=== PATIENT | female | born 1975 | race Caucasian/White ===

== ENCOUNTER 2020-02-20 09:29 | Outpatient (CLI) | payer BC ==
--- NOTE | 2020-03-06 16:25 | Mammography Report ---
BILATERAL DIGITAL SCREENING MAMMOGRAM 3D/2D: 02/20/2020 CLINICAL: Routine screening. No prior exams were available for comparison. The tissue of both breasts is heterogeneously dense. T his may lower the sensitivity of mammography. There are oval enlarged lymph nodes with uniform cortical thickening in the left axillary tail. No other significant masses, calcifications, or other findings are seen in either breast. IMPRESSION: INCOMPLETE: NEEDS ADDITIONAL IMAGING EVALUATION The enlarged oval lymph nodes with uniform cortical thickening are indeterminate. An axillary ultras ound is recommended. This exam was interpreted at Station ID: [id number]. NOTE: For mammograms, a report in lay terms will be sent to the patient. Approximately 15% of breast malignancies will not be visualized mammographically. In the management of a palpable breast mass, a negative mammogram must not discourage biopsy of a clinically suspicious lesion. Electronically Signed By: Nura Puente M.D. aty/:03/05/2020 11:02:42 ACR BI-RADS Category 0: Incomplete 3340F PARENCHYMAL PATTERN: (D) - The breast(s) demonstrate(s) heterogeneously dense fibroglandular marin murphy. BI-RADS CATEGORY: (0) - 0 Ultrasound [id number] Immediate follow-up LATERALITY: (L)
== END 2020-02-20 09:30 | disposition home or self-care (01) ==
LOC: DI 09:29
PROVIDERS: ATTEND Advanced Practice Midwife
DX: Z12.31 Encounter for screening mammogram for malignant neoplasm of breast (principal); R59.0 Localized enlarged lymph nodes
CPT/HCPCS: 77063; 77067

== ENCOUNTER 2020-04-03 12:28 | Outpatient (CLI) | payer BC ==
--- NOTE | 2020-04-04 13:38 | Ultrasound Report ---
LIMITED ULTRASOUND OF LEFT BREAST AND AXILLA: 04/03/2020 CLINICAL: Patient returns for enlarged Left Axillary Lymph nodes. Comparison is made to exams dated: 02/20/2020 mammogram - [facility] and 07/10/2017 mammogram - [facility]. Ultrasound of the left breast axilla was performed. Multiple axillary lymph nodes are seen with normal cortical thickness and preserved fatty purnima. This corresponds with the mammographic findings. IMPRESSION: BENIGN The axillary lymph nodes appear benign. There is no sonographic evidence of malignancy. A 1 year screening mammogram is recommended. This exam was interpreted at Station ID: [id number]. Electronically Signed By: Ameya lee/marissa:04/03/2020 16:53:25 Ultrasound BI-RADS: 2 Benign BI-RADS CATEGORY: (2) - 2 RECOMMENDATION: (ANNUAL) - Recommend routine annual screening mammography. [id number] 1 year screening LATERALITY: (B)
== END 2020-04-03 12:29 | disposition home or self-care (01) ==
LOC: DI 12:28
PROVIDERS: ATTEND Advanced Practice Midwife
DX: R92.2 Inconclusive mammogram (principal)
CPT/HCPCS: 76642

== ENCOUNTER 2020-05-10 07:01 | Outpatient (CLI) | payer BC ==
--- NOTE | 2020-05-10 11:59 | Ultrasound Report ---
PROCEDURE: Pelvic w/Transvaginal INDICATIONS: HX OF OVARIAN CYST, UTERINE FIBROIDS TECHNIQUE: Real-time scanning was performed of the pelvic organs, with image documentation. Additional endovagi nal scanning was necessary due to incomplete visualization of the adnexal and endometrial structures by transabdominal scanning. COMPARISON: None. FINDINGS: Transabdominal scanning: Limited scanning through the kidneys shows no hydronephrosis. No pathologi c free abdominal or pelvic fluid. Endovaginal scanning: Uterus: Uterus is enlarged in size at 11 x 6.4 x 9.9 cm. The endometrium measures 13.2 mm in combin ed thickness. 4.8 x 3.9 x 3.3 cm subserosal fibroid is noted in anterior myometrium near midline. 3. 3 x 3 x 2.8 cm subserosal fibroid is seen in left anterior myometrium. 5 x 5 x 4.1 cm subserosal fibr oid is noted in right anterior myometrium. Trace amount of fluid is noted within endocervical canal. No discrete endometrial mass is seen. Multiple nabothian cysts are also noted along endocervical delaney l. Ovaries: Right ovary measures 6.6 x 4.8 x 5.1 cm in size. 4. 4 x 4 by 3.7 cm cyst with internal low- level echo is seen in right ovary. Additional follicles are noted in right ovary measures up to 2 x 1 .6 x 1 cm in size. Left ovary measures 3.5 x 6.3 x 4.1 cm in size with a left ovarian cyst containing internal low-level echo measures 4.3 x 3.9 x 6.3 cm in size. 2 left ovarian follicles are noted petr ures up to 2 x 1.6 x 1.5 cm in size. No gross solid appearing ovarian lesion is seen. Normal blood fl ow is seen in bilateral ovaries on color Doppler images. IMPRESSION: 1. Multiple uterine fibroids as described above. Thickened endometrium with small amount of endometri al fluid. No discrete endometrial mass is seen. 2. Multiple nabothian cysts are noted within endocervical canal. 3. Bilateral ovarian cysts with low-level echoes suggestive of hemorrhagic cysts or slightly complex cyst. Additional bilateral ovarian follicles. No solid appearing ovarian lesion or evidence of ovaria n torsion. Reviewed by: Jovan Penn MD on 05/10/2020 11:58 AM PST Approved by: Jovan Penn MD on 05/10/2020 11:58 AM [facility] Station ID: [id number]
== END 2020-05-10 07:02 | disposition home or self-care (01) ==
LOC: DI 07:01
PROVIDERS: ATTEND Advanced Practice Midwife
DX: D25.2 Subserosal leiomyoma of uterus (principal); N83.202 Unspecified ovarian cyst, left side; N83.201 Unspecified ovarian cyst, right side; N88.8 Other specified noninflammatory disorders of cervix uteri; Z87.42 Personal history of other diseases of the female genital tract

== ENCOUNTER 2020-05-10 07:54 | Outpatient (CLI) | payer BC ==
[2020-05-11 05:47] LABS: ESTRADIOL 131 pg/mL; PROGESTERONE <0.5 ng/mL
== END 2020-05-10 07:55 | disposition home or self-care (01) ==
LOC: LAB 07:54
PROVIDERS: ATTEND Obstetrics & Gynecology Reproductive Endocrinology
DX: E28.9 Ovarian dysfunction, unspecified (principal)
CPT/HCPCS: 36415; 82670; 83002; 84144

== ENCOUNTER 2020-05-29 08:37 | Outpatient (CLI) | payer BC ==
[2020-05-30 07:07] LABS: PROGESTERONE 53.2 ng/mL
== END 2020-05-29 08:38 | disposition home or self-care (01) ==
LOC: LAB 08:37
DX: Z32.00 Encounter for pregnancy test, result unknown (principal)
CPT/HCPCS: 36415; 82670; 84144

== ENCOUNTER 2020-06-02 08:00 | Outpatient (CLI) | payer BC | END 2020-06-02 23:59 | disposition home or self-care (01) | LOC: LAB 08:00 | PROVIDERS: ATTEND Obstetrics & Gynecology Reproductive Endocrinology | DX: Z32.00 Encounter for pregnancy test, result unknown (principal) | CPT/HCPCS: 36415; 84144; 84702 ==

== ENCOUNTER 2020-06-05 07:50 | Outpatient (CLI) | payer BC ==
[2020-06-06 11:07] LABS: PROGESTERONE 38.8 ng/mL
== END 2020-06-05 07:51 | disposition home or self-care (01) ==
LOC: LAB 07:50
PROVIDERS: ATTEND Obstetrics & Gynecology Reproductive Endocrinology
DX: Z32.01 Encounter for pregnancy test, result positive (principal)
CPT/HCPCS: 36415; 82670; 84144; 84443; 84702

== ENCOUNTER 2020-09-19 15:14 | Outpatient (CLI) | payer BC ==
[2020-09-19 15:31] LABS: HCT - HEMATOCRIT 34.3 % (37.0-47.0); HGB - HEMOGLOBIN 10.6 g/dL (12.0-16.0); MEAN CORPUSCULAR HEMOGLOBIN 25.4 pg (27.0-31.0); MEAN CORPUSCULAR HGB CONC 30.9 g/dL (32.0-36.0); MEAN CORPUSCULAR VOLUME 82.3 fL (81.0-99.0); MEAN PLATELET VOLUME 10.3 fL (7.9-10.8); RED BLOOD COUNT 4.17 10^6/uL (4.20-5.40); WHITE BLOOD COUNT 7.1 x10^3/uL (4.8-10.8)
[2020-09-19 16:07] LABS: % IRON SATURATION 5 % (20-50); IRON 23 ug/dL (28-170); TOTAL IRON BINDING CAPACITY 473 ug/dL (250-450); TRANSFERRIN 338 mg/dL (192-382)
== END 2020-09-19 15:15 | disposition home or self-care (01) ==
LOC: LAB 15:14
PROVIDERS: ATTEND Obstetrics & Gynecology
DX: D25.9 Leiomyoma of uterus, unspecified (principal); D21.9 Benign neoplasm of connective and other soft tissue, unspecified; N92.0 Excessive and frequent menstruation with regular cycle
CPT/HCPCS: 36415; 83540; 84466; 85027

== ENCOUNTER 2020-10-20 09:50 | Outpatient (CLI) | payer BC | END 2020-10-20 23:59 | disposition home or self-care (01) | LOC: COV 09:50 | PROVIDERS: ATTEND Obstetrics & Gynecology | DX: Z01.812 Encounter for preprocedural laboratory examination (principal); Z20.822 Contact with and (suspected) exposure to COVID-19 ==

== ENCOUNTER 2021-06-25 16:40 | Outpatient (CLI) | payer BC ==
--- NOTE | 2021-06-26 14:39 | Ultrasound Report ---
PROCEDURE: Pelvic w/Transvaginal INDICATIONS: FEMALE INFERTILITY TECHNIQUE: Real-time scanning was performed of the pelvic organs, with image documentation. Additional endovagi nal scanning was necessary due to incomplete visualization of the adnexal and endometrial structures by transabdominal scanning. COMPARISON: 05/10/2020 FINDINGS: The uterine body is enlarged measuring 5.7 x 5.7 x 10.2 cm, decreased in size from the prior study (m easuring 6.4 x 9.9 x 11.0 cm at that time. Endometrium measures 11 mm in combined double layer thickness (previously 13 mm). Multiple fibroids are redemonstrated. In the midline anterior uterus there is a subserosal fibroid measuring 2.6 x 3.8 x 4.0 cm (previously 3.3 x 3.9 x 4.8 cm). In the right anterior uterus there is a subserosal fibroid which may be pedunculated, currently measu ring 2.2 x 1.8 x 2.3 cm (previously 5.0 x 5.0 x 5.0 cm). In the left anterior uterus, subserosal fibroid measuring 3.6 x 3.9 x 4.2 cm has increased in size fr om 3.0 x 2.8 x 3.3 cm. Both ovaries are identified. Right ovary unremarkable measuring 3.1 x 3.1 x 3.2 cm. Probable hemorrha gic cyst in the left ovary measuring up to 2 cm. There is a left paraovarian cyst measuring 1.9 x 1.7 x 3.0 cm. A dominant follicle in the left ovary measures 3.7 cm. IMPRESSION: Multiple uterine fibroids, 2 of which have decreased in size from the prior study while the third has increased in size. Bilateral ovarian cysts without evidence of solid lesion. Reviewed by: Dave Monroy MD on 06/26/2021 2:38 PM PST Approved by: Dave Monroy MD on 06/26/2021 2:38 PM PST Station ID: [id number]
== END 2021-06-25 16:41 | disposition home or self-care (01) ==
LOC: DI 16:40
PROVIDERS: ATTEND Obstetrics & Gynecology
DX: N97.9 Female infertility, unspecified (principal); D25.2 Subserosal leiomyoma of uterus; N83.202 Unspecified ovarian cyst, left side; N83.201 Unspecified ovarian cyst, right side

== ENCOUNTER 2021-06-26 07:58 | Outpatient (CLI) | payer BC ==
[2021-06-26 09:48] LABS: THYROID STIMULATING HORMONE 4.41 uIU/mL (0.34-5.60)
[2021-06-26 10:15] LABS: FOLLICLE STIMULATING HORMONE 11.91 mIU/mL
[2021-06-26 10:16] LABS: LUTEINIZING HORMONE 6.78 mIU/mL
[2021-06-27 06:41] LABS: PROGESTERONE 0.5 ng/mL
== END 2021-06-26 07:59 | disposition home or self-care (01) ==
LOC: LAB 07:58
PROVIDERS: ATTEND Obstetrics & Gynecology Reproductive Endocrinology
DX: Z31.83 Encounter for assisted reproductive fertility procedure cycle (principal)
CPT/HCPCS: 36415; 82670; 83001; 83002; 84144; 84443; 84702

== ENCOUNTER 2021-06-28 19:25 | Outpatient (CLI) | payer BC ==
--- NOTE | 2021-06-28 21:04 | Ultrasound Report ---
PROCEDURE: Transvaginal INDICATIONS: Female infertility TECHNIQUE: Real-time scanning was performed with imaging documentation. Endovaginal scanning: Yes. COMPARISON: Ultrasound pelvis, 06/25/2021 and 05/10/2020. FINDINGS: Uterus is anteverted measuring 10.1 x 5.7 x 6.4 cm. Endometrium measures 10 mm in combined thickness. There is a small amount of fluid within the individual cavity. Multiple uterine fibroids are present. The largest one measures 4.0 x 2.6 x 3.6 cm in the right anterior uterine wall. Right ovary measures 3.5 x 2.8 x 3.0 cm with an estimated volume of 15.3 cc. A 1.8 x 1.6 x 1.4 cm cys t is seen in the right ovary, likely dominant ovarian follicle. Less than 10 ovarian follicles. Left ovary measures 4.9 x 5.4 x 4.9 cm with an estimated volume of 67.6 cc. There is a 4.0 x 3.4 x 3. 9 cm cyst in the left ovary, likely hemorrhagic. The previously described left paraovarian cyst is no t visualized on transvaginal scan. Less than 10 ovarian follicles. IMPRESSION: 1. The uterus is enlarged and contains multiple uterine fibroids. There is a small amount of fluid in the endometrial cavity likely related to menses. Recommend clinical correlation. 2. A 4.0 x 3.4 x 3.9 cm hemorrhagic left ovarian cyst. Follow-up imaging suggested. Reviewed by: Eligio Edgar MD on 06/28/2021 9:02 PM PST Approved by: Eligio Edgar MD on 06/28/2021 9:02 PM PST Station ID: [id number]
== END 2021-06-28 19:26 | disposition home or self-care (01) ==
LOC: DI 19:25
PROVIDERS: ATTEND Obstetrics & Gynecology
DX: D25.9 Leiomyoma of uterus, unspecified (principal); N83.202 Unspecified ovarian cyst, left side

== ENCOUNTER 2021-11-02 12:20 | Outpatient (CLI) | payer BC ==
[2021-11-02 17:13] LABS: BASOPHILS # (AUTO) 0.1 10^3/uL (0.0-0.1); BASOPHILS % (AUTO) 0.4 %; EOSINOPHILS % (AUTO) 0.2 %; HCT - HEMATOCRIT 32.6 % (37.0-47.0); HGB - HEMOGLOBIN 10.3 g/dL (12.0-16.0); LYMPHOCYTES # (AUTO) 1.8 10^3/uL (1.5-3.5); LYMPHOCYTES % (AUTO) 11.2 %; MEAN CORPUSCULAR HEMOGLOBIN 27.5 pg (27.0-31.0); MEAN CORPUSCULAR HGB CONC 31.6 g/dL (32.0-36.0); MEAN CORPUSCULAR VOLUME 86.9 fL (81.0-99.0); MEAN PLATELET VOLUME 10.5 fL (7.9-10.8); MONOCYTES % (AUTO) 6.5 %; NEUTROPHILS # (AUTO) 12.7 10^3/uL (1.5-6.6); NEUTROPHILS % (AUTO) 81.1 %; PLT - PLATELET COUNT 538 10^3/uL (130-450); RED BLOOD COUNT 3.75 10^6/uL (4.20-5.40); RED CELL DISTRIBUTION WIDTH 15.9 % (12.0-15.0); WHITE BLOOD COUNT 15.6 x10^3/uL (4.8-10.8)
[2021-11-02 17:30] LABS: ALBUMIN 3.9 g/dL (3.2-5.5); ALBUMIN/GLOBULIN RATIO 0.8 (1.0-2.2); BILIRUBIN,TOTAL 0.5 mg/dL (0.2-1.0); CALCIUM 9.6 mg/dL (8.5-10.3); CREATININE 0.7 mg/dL (0.4-1.0); POTASSIUM 3.9 mmol/L (3.5-5.0); TOTAL PROTEIN 8.8 g/dL (6.7-8.2)
[2021-11-02 17:36] LABS: THYROID STIMULATING HORMONE 2.1 uIU/mL (0.34-5.60)
== END 2021-11-02 12:21 | disposition home or self-care (01) ==
LOC: LAB.N 12:20
PROVIDERS: ATTEND Registered Nurse
DX: R06.09 Other forms of dyspnea (principal); R50.9 Fever, unspecified
CPT/HCPCS: 36415; 80053; 84443; 85025; 86140; 87086

== ENCOUNTER 2021-11-04 11:31 | Observation (INO) | payer BC ==
[2021-11-04 13:02] LABS: BASOPHILS # (AUTO) 0.1 10^3/uL (0.0-0.1); BASOPHILS % (AUTO) 0.5 %; EOSINOPHILS % (AUTO) 0.2 %; HCT - HEMATOCRIT 30.3 % (37.0-47.0); HGB - HEMOGLOBIN 9.9 g/dL (12.0-16.0); LYMPHOCYTES # (AUTO) 1.6 10^3/uL (1.5-3.5); LYMPHOCYTES % (AUTO) 7.8 %; MEAN CORPUSCULAR HEMOGLOBIN 27.7 pg (27.0-31.0); MEAN CORPUSCULAR HGB CONC 32.7 g/dL (32.0-36.0); MEAN CORPUSCULAR VOLUME 84.9 fL (81.0-99.0); MEAN PLATELET VOLUME 9.6 fL (7.9-10.8); MONOCYTES # (AUTO) 1.1 10^3/uL (0.0-1.0); MONOCYTES % (AUTO) 5.7 %; NEUTROPHILS % (AUTO) 85.2 %; PLT - PLATELET COUNT 532 10^3/uL (130-450); RED BLOOD COUNT 3.57 10^6/uL (4.20-5.40); RED CELL DISTRIBUTION WIDTH 16.1 % (12.0-15.0); WHITE BLOOD COUNT 19.9 x10^3/uL (4.8-10.8)
[2021-11-04 13:08] LABS: INR 1.5 (0.8-1.2); PT - PROTHROMBIN TIME 16.6 secs (9.9-12.6)
[2021-11-04 13:15] LABS: ALBUMIN 3.8 g/dL (3.2-5.5); ALBUMIN/GLOBULIN RATIO 0.8 (1.0-2.2); BILIRUBIN,TOTAL 0.4 mg/dL (0.2-1.0); CALCIUM 9.4 mg/dL (8.5-10.3); CREATININE 0.5 mg/dL (0.4-1.0); POTASSIUM 3.9 mmol/L (3.5-5.0); TOTAL PROTEIN 8.4 g/dL (6.7-8.2)
[2021-11-04 14:22] LABS: BILIRUBIN,URINE NEGATIVE (NEGATIVE); GLUCOSE, URINE (UA) NEGATIVE (NEGATIVE); KETONES,URINE (UA) 40 mg/dL (NEGATIVE); LEUKOCYTE ESTERASE, URINE TRACE (NEGATIVE); NITRITE,URINE NEGATIVE (NEGATIVE); OCCULT BLOOD,URINE LARGE (NEGATIVE); PH,URINE 5.5 PH (5.0-7.5); PROTEIN,URINE TRACE mg/dL (NEGATIVE); UROBILINOGEN,URINE 0.2 (NORMAL) E.U./dL (NORMAL)
[2021-11-04 14:40] LABS: CLARITY,URINE CLEAR (CLEAR)
[2021-11-04 14:41] LABS: BACTERIA,URINE None Seen /HPF (None Seen); SQUAMOUS EPITHELIAL CELL,UR FEW Squamous (<= Few)
[2021-11-04] MEDS ORDERED: SODIUM CHLORIDE 0.9% 1,000 ML IV STA (15:24)
[2021-11-04] MEDS ORDERED: cefTRIAXone 1 GM VIAL IVP STA (15:25)
--- NOTE | 2021-11-04 15:37 | ED Physician Documentation ---
History of Present Illness - Stated complaint Stated Complaint: ABNORMAL BLOODWORK - Chief complaint Chief Complaint: General - Additonal information Additional information: 46-year-old female comes to the emergency department for evaluation of abnormal lab work. About 1 week ago she began to have generalized myalgias chills and significant fatigue. She also had low-grade temperature elevations. About 72 hours ago she developed a fever up to 102. She went to a local walk-in clinic. Screening x-ray at that time was negative. She was told negative for UTI. However screening blood work showed a white count of 17,000 as well as a CRP of 17,000 thus she was told to come into the ER. On repeat exam today she has developed a fever up to 103.4. Repeat CBC shows worsening leukocytosis now at 20,000. She denies any abdominal pain nausea or vomiting. No dysuria. Past medical history is most significant for endometritis Review of Systems Constitutional: reports: Fever, Chills, Myalgias, Fatigue Eyes: reports: Reviewed and negative Ears: reports: Reviewed and negative Throat: reports: Reviewed and negative Cardiac: reports: Reviewed and negative Respiratory: reports: Reviewed and negative GI: reports: Reviewed and negative : reports: Reviewed and negative PD PAST MEDICAL HISTORY - Present Medications Home Medications: Ambulatory Orders Medication Instructions Recorded Confirmed Levothyroxine [Synthroid] 75 mcg PO QDAC 11/04/21 - Allergies Allergies/Adverse Reactions: Allergies Allergy/AdvReac Type Severity Reaction Status Date / Time piperacillin [From Zosyn] AdvReac Itching Verified 11/04/21 11:42 tazobactam [From Zosyn] AdvReac Itching Verified 11/04/21 11:42 PD ED PE NORMAL - General General: Alert and oriented X 3, No acute distress, Well developed/nourished - HEENT HEENT: Atraumatic, Moist mucous membranes, Pharynx benign - Neck Neck: Supple, no meningeal sign, No adenopathy, No JVD - Cardiac Cardiac: RRR, No murmur - Respiratory Respiratory: No respiratory distress, Clear bilaterally - Abdomen Abdomen: Normal bowel sounds, Soft. No: Non tender Results - Vitals Vitals: Vital Signs - 24 hr 11/04/21 11/04/21 11:36 14:44 Temperature 36.6 C Heart Rate 95 97 Respiratory 16 16 Rate Blood Pressure 127/76 121/78 O2 Saturation 100 100 Oxygen O2 Source Room air - Labs Labs: Laboratory Tests 11/04/21 11/04/21 11/04/21 12:51 12:51 12:51 WBC 19.9 H RBC 3.57 L Hgb 9.9 L Hct 30.3 L MCV 84.9 MCH 27.7 MCHC 32.7 RDW 16.1 H Plt Count 532 H MPV 9.6 Neut # (Auto) 17.0 H Lymph # (Auto) 1.6 Bell # (Auto) 1.1 H Eos # (Auto) 0.0 Baso # (Auto) 0.1 Absolute Nucleated RBC 0.00 Nucleated RBC % 0.0 PT 16.6 H INR 1.5 H Sodium 138 Potassium 3.9 Chloride 99 L Carbon Dioxide 27 Anion Gap 12.0 BUN 12 Creatinine 0.5 Estimated GFR (MDRD) 133 Glucose 101 H Lactic Acid Calcium 9.4 Iron TIBC % Saturation Transferrin Total Bilirubin 0.4 AST 41 ALT 77 H Alkaline Phosphatase 119 Total Creatine Kinase 69 Total Protein 8.4 H Albumin 3.8 Globulin 4.6 H Albumin/Globulin Ratio 0.8 L Lipase 28 Procalcitonin TSH Urine Color Urine Clarity Urine pH Ur Specific Roosevelt Urine Protein Urine Glucose (UA) Urine Ketones Urine Occult Blood Urine Nitrite Urine Bilirubin Urine Urobilinogen Ur Leukocyte Esterase Urine RBC Urine WBC Ur Squamous Epith Cells Urine Bacteria Ur Microscopic Review Urine Culture Comments Nasal Adenovirus (PCR) Nasal B. parapertussis DNA (PCR) Nasal Coronavir 229E PCR Nasal Coronavir HKU1 PCR Nasal Coronavir NL63 PCR Nasal Coronavir OC43 PCR Nasal Enterovir/Rhinovir PCR Nasal Influenza B PCR Nasal Influenza A PCR Nasal Parainfluen 1 PCR Nasal Parainfluen 2 PCR Nasal Parainfluen 3 PCR Nasal Parainfluen 4 PCR Nasal RSV (PCR) Nasal B.pertussis DNA PCR Nasal C.pneumoniae (PCR) De Human Metapneumo PCR Nasal M.pneumoniae (PCR) Nasal SARS-CoV-2 (PCR) 11/04/21 11/04/21 11/04/21 12:51 12:51 13:00 WBC RBC Hgb Hct MCV MCH MCHC RDW Plt Count MPV Neut # (Auto) Lymph # (Auto) Bell # (Auto) Eos # (Auto) Baso # (Auto) Absolute Nucleated RBC Nucleated RBC % PT INR Sodium Potassium Chloride Carbon Dioxide Anion Gap BUN Creatinine Estimated GFR (MDRD) Glucose Lactic Acid 0.5 Calcium Iron 12 L TIBC 330 % Saturation 4 L Transferrin 236 Total Bilirubin AST ALT Alkaline Phosphatase Total Creatine Kinase Total Protein Albumin Globulin Albumin/Globulin Ratio Lipase Procalcitonin 0.10 TSH Urine Color Urine Clarity Urine pH Ur Specific [place] Urine Protein Urine Glucose (UA) Urine Ketones Urine Occult Blood Urine Nitrite Urine Bilirubin Urine Urobilinogen Ur Leukocyte Esterase Urine RBC Urine WBC Ur Squamous Epith Cells Urine Bacteria Ur Microscopic Review Urine Culture Comments Nasal Adenovirus (PCR) Nasal B. parapertussis DNA (PCR) Nasal Coronavir 229E PCR Nasal Coronavir HKU1 PCR Nasal Coronavir NL63 PCR Nasal Coronavir OC43 PCR Nasal Enterovir/Rhinovir PCR Nasal Influenza B PCR Nasal Influenza A PCR Nasal Parainfluen 1 PCR Nasal Parainfluen 2 PCR Nasal Parainfluen 3 PCR Nasal Parainfluen 4 PCR Nasal RSV (PCR) Nasal B.pertussis DNA PCR Nasal C.pneumoniae (PCR) De Human Metapneumo PCR Nasal M.pneumoniae (PCR) Nasal SARS-CoV-2 (PCR) 11/04/21 11/04/21 11/04/21 13:00 14:12 14:52 WBC RBC Hgb Hct MCV MCH MCHC RDW Plt Count MPV Neut # (Auto) Lymph # (Auto) Bell # (Auto) Eos # (Auto) Baso # (Auto) Absolute Nucleated RBC Nucleated RBC % PT INR Sodium Potassium Chloride Carbon Dioxide Anion Gap BUN Creatinine Estimated GFR (MDRD) Glucose Lactic Acid Calcium Iron TIBC % Saturation Transferrin Total Bilirubin AST ALT Alkaline Phosphatase Total Creatine Kinase Total Protein Albumin Globulin Albumin/Globulin Ratio Lipase Procalcitonin TSH 2.85 Urine Color YELLOW Urine Clarity CLEAR Urine pH 5.5 Ur Specific Roosevelt 1.025 Urine Protein TRACE Urine Glucose (UA) NEGATIVE Urine Ketones 40 H Urine Occult Blood LARGE H Urine Nitrite NEGATIVE Urine Bilirubin NEGATIVE Urine Urobilinogen 0.2 (NORMAL) Ur Leukocyte Esterase TRACE H Urine RBC 11-25 H Urine WBC 6-10 H Ur Squamous Epith Cells FEW Squamous Urine Bacteria None Seen Ur Microscopic Review INDICATED Urine Culture Comments INDICATED Nasal Adenovirus (PCR) NOT DETECTED Nasal B. parapertussis DNA (PCR) NOT DETECTED Nasal Coronavir 229E PCR NOT DETECTED Nasal Coronavir HKU1 PCR NOT DETECTED Nasal Coronavir NL63 PCR NOT DETECTED Nasal Coronavir OC43 PCR NOT DETECTED Nasal Enterovir/Rhinovir PCR NOT DETECTED Nasal Influenza B PCR NOT DETECTED Nasal Influenza A PCR NOT DETECTED Nasal Parainfluen 1 PCR NOT DETECTED Nasal Parainfluen 2 PCR NOT DETECTED Nasal Parainfluen 3 PCR NOT DETECTED Nasal Parainfluen 4 PCR NOT DETECTED Nasal RSV (PCR) NOT DETECTED Nasal B.pertussis DNA PCR NOT DETECTED Nasal C.pneumoniae (PCR) NOT DETECTED De Human Metapneumo PCR NOT DETECTED Nasal M.pneumoniae (PCR) NOT DETECTED Nasal SARS-CoV-2 (PCR) DETECTED A PD MEDICAL DECISION MAKING - ED course Complexity details: considered differential, d/w patient ED course: 46-year-old female presents to the emergency department for evaluation of worsening fever and leukocytosis. Generalized fatigue and myalgia over the last week. Repeat CBC today shows worsening leukocytosis at 20,000. Chest x-ray does not reveal an obvious pneumonia but her urine suggests early infection.However we would not expect a simple UTI to cause such significant fever and leukocytosis. Blood cultures are pending. Patient does meet the criteria for sepsis without hypotension or organ dysfunction. I have however spoken about this case with Dr. Fernandes and he feels that admission is warranted for further evaluation and monitoring. Patient remains hemodynamically stable and is agreeable to inpatient admission status. - Sepsis Event Sepsis Onset Date: 11/04/21 Sepsis Onset Time: 15:00 Current Stage of Sepsis: Sepsis Initial Hypotension: Not hypotensive Possible source of Sepsis: Genitourinary Mental/Cognitive Status: Alert/Oriented X3 Reason for not giving 30ml/kg crystalloid fluids: Not in septic shock Capillary refill: Less than 2 seconds Peripheral Pulse Strength: 3+ Normal Peripheral Pulse Location: Pedal Departure - Departure Disposition: [facility] DC/Xfer Clinical Impression: Sepsis Qualifiers: Sepsis type: sepsis due to unspecified organism Sepsis acute organ dysfunction status: without acute organ dysfunction Qualified Code(s): A41.9 - Sepsis, unspecified organism Urinary tract infection Qualifiers: Urinary tract infection type: acute cystitis Hematuria presence: with hematuria Qualified Code(s): N30.01 - Acute cystitis with hematuria Leukocytosis Qualifiers: Leukocytosis type: unspecified Qualified Code(s): D72.829 - Elevated white blood cell count, unspecified Discharge Date/Time: 11/04/21 16:25
--- NOTE | 2021-11-04 15:39 | XRAY Report ---
PROCEDURE: Chest 1 View X-Ray INDICATIONS: chest pain TECHNIQUE: One view of the chest was acquired. COMPARISON: 11/02/2021 FINDINGS: Surgical changes and devices: None. Lungs and pleura: No pleural effusions or pneumothorax. Lungs are clear. Mediastinum: Mediastinal contours appear normal. Heart size is normal. Bones and chest wall: No suspicious bony lesions. Overlying soft tissues appear unremarkable. IMPRESSION: No evidence of an acute cardiopulmonary abnormality. Reviewed by: Giovani Jenkins DO on 11/04/2021 2:37 PM [facility] Approved by: Giovani Jenkins DO on 11/04/2021 2:37 PM [facility] Station ID: [id number]
[2021-11-04] MEDS ORDERED: HYDROcod/ACETAM 5/325 MG TABLET PO PRN (15:44)
[2021-11-04] MEDS ORDERED: SODIUM CHLORIDE FLUSH 0.9% 10 ML SYRINGE IVP PRN (15:44)
[2021-11-04] MEDS ORDERED: PROCHLORPERAZINE 10 MG/2 ML VIAL IVP PRN (15:44)
[2021-11-04] MEDS ORDERED: TEMAZEPAM 15 MG CAPSULE PO PRN (15:47)
[2021-11-04] MEDS ORDERED: diphenhydrAMINE INJ 50 MG/ML VIAL IVP PRN (15:47)
--- NOTE | 2021-11-04 15:55 | HISTORY & PHYSICAL EXAMINATION ---
Chief Complaint - Chief Complaint Chief Complaint: Fever, malaise, myalgias, cough History of Present Illness - Admitted From Admitted From:: ED - History Obtained From Records Reviewed: Yes History obtained from: Patient Exam Limitations: none - History of Present Illness HPI Comment/Other: Is an 46-year-old female with a history of anemia, endometriosis with prior hysteroscopy and cauterization of right fallopian tube due to a leak, without any other underlying cardiovascular comorbidities presents to the [facility] with 1 week of fatigue. She had gone to the walk-in clinic and was told she had abnormal labs with a WBC of 15.5 and an elevated CRP of 17 and was told to go to the emergency department. She had been mentioning fevers with a T-max of 103.4, a nonproductive cough and stated that she had COVID in the past however is currently vaccinated. Patient mentions poor appetite within the week she has been feeling very fatigued.Patient states that she is having fevers and chills at home, denies any contacts, recent travel, dysuria, flank pain, abdominal pain, hemoptysis, hematochezia, headaches, chest pain, shortness of breath, GI or symptoms, maculopapular rash or joint tenderness. In the emergency department patient was found to have a WBC of 19.9, hemoglobin of 9.9 with a baseline ranging between 10 and 11 g/dL, thrombocytosis with a INR 1.5. Electrolytes were unremarkable with stable renal panel, lactic acid was 0.5 CK within normal limits with an ALT of 77. T bilirubin was also unremarkable. UA shows some pyuria, hematuria and likely source of patient's symptoms due to UTI.Due to patient meeting sepsis physiology on admission will admit for IV antibiotics and sepsis work-up. Patient's vital signs were hemodynamically stable with heart rates in the 90s and systolic blood pressures in the 120s, nontachypneic, not hypoxemic and is afebrile in the ED. 2 sets of b lood cultures were drawn and procalcitonin prior to IV Rocephin being administered in the ED. Hospital service was requested for further evaluation management treatment. History - Past Medical History Cardiovascular: reports: None Respiratory: reports: None Neuro: reports: None Endocrine/Autoimmune: reports: None GI: reports: None [employer] WORK WITH [employer]: reports: Endometriosis HEENT: reports: None Psych: reports: None Derm: reports: None MRSA Hx?: No Other Past Medical History: Anemia - Past Surgical History General: reports: Appendectomy /[employer] WORK [employer]: reports: Endometrial ablation, Other (Surgery for a right fallopian tube leak) - Family & Social History Living arrangement: At home Living Situation: Alone, With spouse/s.o. - Substance History Use: Uses substance without health or social issues: NONE Abuse: Recurrent use of substance despite neg consequences: NONE - POLST Patient has POLST: No POLST Status: Full Code Meds/Allgy - Home Medications Home Medications: Ambulatory Orders Medication Instructions Recorded Confirmed Levothyroxine [Synthroid] 75 mcg PO QDAC 11/04/21 - Allergies Allergies/Adverse Reactions: Allergies Allergy/AdvReac Type Severity Reaction Status Date / Time piperacillin [From Zosyn] AdvReac Itching Verified 11/04/21 11:42 tazobactam [From Zosyn] AdvReac Itching Verified 11/04/21 11:42 Review of Systems - Constitutional Constitutional: reports: Fatigue, Fever, Chills, Weakness - Eyes Eyes: denies: Irritation - Ears, Nose & Throat Ears, Nose & Throat: denies: Ear pain, Tinnitus, Vertigo, Sore throat - Cardiovascular Cariovascular: denies: Palpitations, Chest pain, Lightheadedness, Syncope - Respiratory Respiratory: reports: Cough. denies: Sputum production, Wheezing, Hemoptysis, Orthopnea, Stridor, Pleuritic pain - Gastrointestinal Gastrointestinal: reports: Poor appetite. denies: Abdominal pain, Abdominal distention, Constipation, Diarrhea, Nausea, Reflux/heartburn - Genitourinary Genitourinary: denies: Dysuria, Frequency, Incontinence, Flank pain - Musculoskeletal Musculoskeletal: reports: Muscle weakness. denies: Muscle pain, Back pain, Muscle aches, Joint swelling - Integumentary Integumentary: denies: Rash, Pruritis, Lesions, Pigment changes - Neurological Neurological: denies: Headache, Dizziness, Seizures - Psychiatric Psychiatric: denies: Depression, Anxiety - Endocrine Endocrine: denies: Polyuria, Polydypsia, Polyphagia - Hematologic/Lymphatic Hematologic/Lymphatic: reports: Anemia. denies: Petechiae, Blood clots, Lymphadenopathy - All Other Systems All Other Systems: reports: Reviewed and negative Prior Level of Functionality: Patient has normal functional capacity and is ambulatory and independent at home. Exam - Vital Signs Vital Signs: Vital Signs x48h Temp Pulse Resp BP Pulse Ox 11/04/21 14:44 97 16 121/78 100 11/04/21 11:36 36.6 C 95 16 127/76 100 - Physical Exam General Appearance: positive: No acute distress, Alert Eyes Bilateral: positive: Normal inspection, PERRL, EOMI ENT: positive: ENT inspection nml, Pharynx nml, No signs of dehydration Neck: positive: Nml inspection, Thyroid nml, No JVD, Trachea midline. negative: Thyromegaly Respiratory: positive: Chest non-tender, No respiratory distress, Breath sounds nml. negative: Wheezes, Rales, Rhonchi Cardiovascular: positive: Regular rate & rhythm, No murmur, No gallop Peripheral Pulses: positive: 2+ Abdomen: positive: Non-tender, No organomegaly, Nml bowel sounds. negative: No distention, Hepatomegaly, Splenomegaly Back: positive: Nml inspection Skin: positive: Color nml, No rash. negative: Skin rash, Puncture wound Extremities: positive: Non-tender, Full ROM, Nml appearance Neurologic/Psychiatric: positive: Oriented x3, CN's nml (2-12) Sepsis Event Note (H) - Evaluation Current Stage of Sepsis: Sepsis Possible source of Sepsis: positive: Genitourinary Conclusion/Plan - Problem List (1) Anemia Qualifiers: Anemia type: unspecified type Qualified Code(s): D64.9 - Anemia, unspecified (3) Sepsis Qualifiers: Sepsis type: sepsis due to unspecified organism Sepsis acute organ dysfunction status: without acute organ dysfunction Qualified Code(s): A41.9 - Sepsis, unspecified organism (4) Urinary tract infection Qualifiers: Urinary tract infection type: acute cystitis Hematuria presence: with hematuria Qualified Code(s): N30.01 - Acute cystitis with hematuria - Lab Results Fish Bones: 11/04/21 12:51 11/04/21 12:51 - Diagnostic Imaging Results Diagnostic Imaging Results: positive: Final report reviewed - Other Other Results/Comments: Patient to be admitted to [facility], IV antibiotics with Rocephin and monitoring of mild transaminitis as well as CBC for her anemia and mild coagulopathy u nknown cause perhaps sepsis related as she is not on blood thinners or anticoagulants. Viral serologies to follow although T bilirubin is unremarkable, her prior CRP was elevated likely due to sepsis inflammatory cause and 2 sets of blood cultures to follow. Procalcitonin is actually not elevated.W BC had up trended from the clinic of 15.5 now to 19.9, has underlying thrombocytosis unclear if this is new. We will continue to monitor and defer off of sepsis bolus 30 cc/kg protocol due to MAP is well above 70 and give Tylenol for patient's fevers. Interestingly patient was found to have COVID p ositivity although with a history of having COVID in mid May unclear if she is shedding virus versus reinfection of subbed variant which would precipitate patient's fatigue. It is also possible that her sepsis may be related to her UTI superimposed versus bacteremia which is still unclear as we await for 2 sets of blood cultures drawn in the emergency department.Patient looks remarkably well and she is completely asymptomatic in regards to her UTI which is unusual if this was UTI related sepsis. She however does have fatigue with fevers and a nonproductive cough going more in line with possible reinfection of COVID despite her vaccination status. In addition her CRP was elevated which would also go in line with reinfection of COVID. We will obtain an LDH and ESR as this would corroborate inflammatory process in which COVID infection would be the primary cause of patient's viral sepsis. However, have not excluded entirely bacteremia type sepsis. Will defer 30 cc/kg bolus as lactic acid and procalcitonin were not markedly elevated and MAP is well above 70s. She may have sepsis induced coagulopathy with downtrending and her anemia and will obtain iron studies and an occult blood test to rule out other causes. Would place on DVT prophylaxis with Lovenox due to elevated risk for DVT given her sepsis and her COVID positivity. Her CXR is unremarkable and she is not hypoxemic and will to be deferring off Decadron as well as remdesivir. DVT prophylaxis: Lovenox. GI prophylaxis: On Pepcid CODE STATUS: Full code confirmed at bedside. Core Measures - Anticipated LOS I expect patient to be DC'd or transferred within 96 hours.: Yes - DVT/VTE - Prophylaxis VTE/DVT Device ordered at admit?: Yes VTE/DVT Prophylaxis med ordered at admit?: Yes
[2021-11-04 16:08] LABS: B. PARAPERTUSSIS- RESP PCR PAN NOT DETECTED; B. PERTUSSIS- RESP PCR PANEL NOT DETECTED; C. PNEUMONIAE- RESP PCR PANEL NOT DETECTED; CORONAVIRUS 229E-RESP PCR NOT DETECTED; CORONAVIRUS HKU1-RESP PCR NOT DETECTED; CORONAVIRUS NL63-RESP PCR NOT DETECTED; CORONAVIRUS OC43-RESP PCR NOT DETECTED; HUMAN METAPNEUMOVIRUS NOT DETECTED; INFLUENZA A- RESP PCR PANEL NOT DETECTED; INFLUENZA B - RESP PCR PANEL NOT DETECTED; M. PNEUMONIAE- RESP PCR PANEL NOT DETECTED; PARAINFLUENZA VIRUS 1 NOT DETECTED; PARAINFLUENZA VIRUS 2 NOT DETECTED; PARAINFLUENZA VIRUS 3 NOT DETECTED; PARAINFLUENZA VIRUS 4 NOT DETECTED; RHINOVIRUS/ENTEROVIRUS NOT DETECTED; RSV- RESP PCR PANEL NOT DETECTED; SARS-CoV-2 -RESP PCR PANEL DETECTED
[2021-11-04 16:34] LABS: % IRON SATURATION 4 % (20-50); IRON 12 ug/dL (28-170); TOTAL IRON BINDING CAPACITY 330 ug/dL (250-450); TRANSFERRIN 236 mg/dL (192-382)
[2021-11-04] MEDS: SODIUM CHLORIDE FLUSH 0.9% 10 ML SYRINGE IVP SCH (16:59)
[2021-11-04] MEDS: ACETAMINOPHEN 325 MG TABLET PO PRN ×2 (17:00→21:00)
[2021-11-04] MEDS: FAMOTIDINE 20 MG TABLET PO SCH (21:00)
[2021-11-04] MEDS: BENZONATATE 100 MG CAPSULE PO PRN (21:06)
[2021-11-05] MEDS: SODIUM CHLORIDE FLUSH 0.9% 10 ML SYRINGE IVP SCH ×2 (00:02→08:31)
[2021-11-05 05:43] LABS: BASOPHILS # (AUTO) 0.1 10^3/uL (0.0-0.1); BASOPHILS % (AUTO) 0.3 %; EOSINOPHILS % (AUTO) 0.2 %; HCT - HEMATOCRIT 28.2 % (37.0-47.0); HGB - HEMOGLOBIN 8.8 g/dL (12.0-16.0); LYMPHOCYTES # (AUTO) 2.3 10^3/uL (1.5-3.5); LYMPHOCYTES % (AUTO) 12.5 %; MEAN CORPUSCULAR HEMOGLOBIN 26.7 pg (27.0-31.0); MEAN CORPUSCULAR HGB CONC 31.2 g/dL (32.0-36.0); MEAN CORPUSCULAR VOLUME 85.5 fL (81.0-99.0); MEAN PLATELET VOLUME 10.2 fL (7.9-10.8); MONOCYTES # (AUTO) 1.3 10^3/uL (0.0-1.0); NEUTROPHILS # (AUTO) 14.6 10^3/uL (1.5-6.6); NEUTROPHILS % (AUTO) 79.4 %; PLT - PLATELET COUNT 549 10^3/uL (130-450); RED CELL DISTRIBUTION WIDTH 16.4 % (12.0-15.0); WHITE BLOOD COUNT 18.4 x10^3/uL (4.8-10.8)
[2021-11-05] MEDS: BENZONATATE 100 MG CAPSULE PO PRN (05:53)
[2021-11-05] MEDS: ACETAMINOPHEN 325 MG TABLET PO PRN (05:53)
[2021-11-05 05:55] LABS: ALBUMIN 3.2 g/dL (3.2-5.5); ALBUMIN/GLOBULIN RATIO 0.7 (1.0-2.2); BILIRUBIN,TOTAL 0.4 mg/dL (0.2-1.0); CALCIUM 8.6 mg/dL (8.5-10.3); CREATININE 0.6 mg/dL (0.4-1.0); POTASSIUM 3.5 mmol/L (3.5-5.0); TOTAL PROTEIN 7.5 g/dL (6.7-8.2)
[2021-11-05 06:00] LABS: INR 1.5 (0.8-1.2); PT - PROTHROMBIN TIME 16.3 secs (9.9-12.6)
[2021-11-05] MEDS ORDERED: FERROUS SULFATE 325 MG TABLET PO SCH (08:00)
[2021-11-05] MEDS ORDERED: FERRIC GLUCONATE 125 MG in SODIUM CHLORIDE 0.9% 100ML 100 ML IV ONE (08:00)
[2021-11-05 08:15] VITALS: BP 121/64
[2021-11-05] MEDS ORDERED: SODIUM CHLORIDE 0.9% 100ML 100 ML IV ONE (08:21)
[2021-11-05] MEDS: FAMOTIDINE 20 MG TABLET PO SCH (08:27)
--- NOTE | 2021-11-05 08:35 | Discharge Plan ---
Discharge Plan Problem Reviewed?: Yes Disposition: Home, Self Care Condition: Good Diet: Regular Activity Restrictions: No Restrictions Shower Restrictions: No Driving Restrictions: No Weight Bearing: Full Weight Instruction Topics: COVID-19 [facility], COVID-19 [facility] Statement Plan of Treatment: If your fevers stop on 11/05/2021 without the use of ongoing Tylenol use you can leave your home on November 06, 2021 if your symptoms are improving. Wear a well f itted mask around the other people and do not travel through November 07, 2021. If you continue to have fever or your other symptoms have not improved after 5 days of isolation, you should wait to end your isolation until you are fever-free for 24 hours without the use of fever-reducing medication and your other symptoms have improved. Continue to wear a well-fitting mask. Loss of taste and smell can last for weeks or months after you feel better and should not delay the end of isolation. Contact your healthcare provider if you have questions. Monitor your symptoms. If you have an emergency warning sign, such as trouble breathing or persistent chest pain or pressure, seek emergency medical care immediately. Stay in a separate room from other household members, if possible. Use a separate bathroom, if possible. Take steps to improve ventilation at home, if possible. Avoid contact with other members of the household and pets. Don't share personal household items, like cups, towels, and utensils. Wear a well-fitting mask when you need to be around other people. If you are unable to wear a mask when around others, you should continue to isolate for 10 days. Avoid people who have weakened immune systems or are more likely to get very sick from COVID-19, and nursing homes and other high-risk settings, until after at least 10 days. Do not travel for 10 days. Contact your healthcare provider if you have any questions. Continue to take Tylenol and ibuprofen as needed but refer to instructions as per above for further guidance on ongoing symptoms. Please contact your employer at [employer] or employee occupational health to see when you are able to go back to work. Care Goals: As per above. Please follow-up with a new PCP as no PCP is listed on your file as needed or if he has further questions [facility] for any concerns on CDC guidelines or new symptoms that may present. No Smoking: If you smoke, Please STOP! Call for help.
--- NOTE | 2021-11-05 08:47 | DISCHARGE SUMMARY ---
Discharge Summary Admit Date: 11/04/21 Discharge Date: 11/05/21 Discharging Provider: Dr. Fernandes Primary Care Provider: None Code Status: Attempt Resuscitation Condition at Discharge: Good Discharge Disposition: 01 Home, Self Care Discharge Facility Name: [facility] - DIAGNOSES Admission Diagnoses: Sepsis Covid illness/Fevers Anemia Hx endometrosios Coagulopathy Generalized Weakness Abnormal UA/Suspected Urinary tract infection Discharge Diagnoses with Status of Each Condition: Viral Sepsis---improved Covid illness/Fevers---improved Anemia---stable Hx endometrosios---stable Coagulopathy----stable Generalized Weakness----improved Abnormal UA/Suspected Urinary tract infection---ruled out - HPI History of Present Illness: This is a 46-year-old female with a history of anemia, endometriosis with prior hysteroscopy and cauterization of right fallopian tube due to a leak, without any other underlying cardiovascular comorbidities presents to the emergency department with 1 week of fatigue. She had gone to the walk-in clinic and was told she had abnormal labs with a WBC of 15.5 and an elevated CRP of 17 and was told to go to the emergency department. She had been mentioning fevers with a T-max of 103.4, a nonproductive cough and stated that she had COVID in the past however is currently vaccinated. Patient mentions poor appetite within the week she has been feeling very fatigued.Patient states that she is having fevers and chills at home, denies any contacts, recent travel, dysuria, flank pain, abdominal pain, hemoptysis, hematochezia, headaches, chest pain, shortness of breath, GI or symptoms, maculopapular rash or joint tenderness. In the emergency department patient was found to have a WBC of 19.9, hemoglobin of 9.9 with a baseline ranging between 10 and 11 g/dL, thrombocytosis with a INR 1.5. Electrolytes were unremarkable with stable renal panel, lactic acid was 0.5 CK within normal limits with an ALT of 77. T bilirubin was also unremarkable. UA shows some pyuria, hematuria and likely source of patient's symptoms due to UTI.Due to patient meeting sepsis physiology on admission will admit for IV antibiotics and sepsis work-up. Patient's vital signs were hemodynamically stable with heart rates in the 90s and systolic blood pressures in the 120s, nontachypneic, not hypoxemic and is afebrile in the ED. 2 sets of blood cultures were drawn and procalcitonin prior to IV Rocephin being administered in the ED. Hospital service was requested for further evaluation management treatment. 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 Was diagnosed with viral sepsis likely secondary to reinfection of omicron vs. subvariant strains given her clinical presentation with leukocytosis, cyclical fevers, fatigue, mild [place] [employer] cough, and CRP at 23.6 (17 at clinic). Blood cx's were drawn and she was started empirically on IV Rocephin. Blood cultures are negative growth to date.She does have underlying anemia which appears to be chronic and normocytic normochromic but with concomitant coagulopathy in the setting of her viral sepsis with an INR of 1.5. She did T-max at 102.2 and was tachycardic and meeting sepsis physiology with initial WBC of 19.9 down trended to 18.4. Hemoglobin 8.8 with no evidence of bleeding and with TSH being normal but does have iron deficiency anemia with low serum iron and saturation, thrombocytosis was present with a platelets of 549. She did receive Lovenox 40 mg subcu daily for DVT prophylaxis and sepsis protocol IV fluids was deferred due to increased risk of ARDS although CXR did not show COVID-pneumonia. Her UA was abnormal with mild pyuria and urine culture as well as blood cultures were pending. Procalcitonin was essentially unremarkable TSH was within normal limits, slightly elevated transaminitis which did downtrend to normal levels now. Patient to be treated with IV Ferrlecit and prescription oral iron 325 mg p.o. twice daily to be dispensed at discharge. I did explain to the patient that I will likely defer off antibiotics due to high suspicion of viral sepsis and unlikely UTI or bacterial related bacteremia/sepsis. She agreed with this plan. Patient not a candidate for Paxlovid that due to no risk factors and otherwise healthy female with underlying endometriosis. She is not a candidate for D ecadron or remdesivir given nonhypoxemia and no COVID pneumonia seen on CXR. We will wait for 2 sets of blood cultures and will call her back if these are positive to institute IV antibiotics however unlikely given her procalcitonin only 0.10. Patient had concerns on exposure to family members and CDC guideline isolation and precautions were provided. - ALLERGIES Allergies/Adverse Reactions: Allergies Allergy/AdvReac Type Severity Reaction Status Date / Time piperacillin [From Zosyn] AdvReac Itching Verified 11/04/21 11:42 tazobactam [From Zosyn] AdvReac Itching Verified 11/04/21 11:42 - MEDICATIONS Home Medications: Ambulatory Orders Medication Instructions Recorded Confirmed Levothyroxine [Synthroid] 75 mcg PO QDAC 11/04/21 - PHYSICAL EXAM AT DISCHARGE General Appearance: positive: No acute distress, Alert, Other (Appears fatigued) Eyes Bilateral: positive: Normal inspection, PERRL, EOMI ENT: positive: ENT inspection nml, Pharynx nml, No signs of dehydration Neck: positive: Nml inspection, Thyroid nml, No JVD, Trachea midline Respiratory: positive: Chest non-tender, No respiratory distress, Breath sounds nml Cardiovascular: positive: Regular rate & rhythm, No murmur, No gallop Peripheral Pulses: positive: 2+ Abdomen: positive: Non-tender, No organomegaly, Nml bowel sounds, No distention Skin: positive: Color nml, No rash Extremities: positive: Non-tender, Full ROM, Nml appearance Neurologic/Psychiatric: positive: Oriented x3, CN's nml (2-12) - LABS Result Diagrams: 11/05/21 04:58 11/05/21 04:58 - SEPSIS Current Stage of Sepsis: Sepsis Confirmed Source and Organism (if known) of Sepsis: COVID-viral induced sepsis - FOLLOW UP Follow Up: Follow-up with new PCP if indicated however will need to follow-up CDC guidelines as outpatient to return to work 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 - TIME SPENT Time Spent in Discharge (Minutes): 40
[2021-11-05] MEDS ORDERED: CHOLECALCIFEROL 5,000 UNIT CAPSULE PO SCH (09:00)
[2021-11-05] MEDS ORDERED: ZINC SULFATE 220 MG CAPSULE PO SCH (09:00)
[2021-11-05] MEDS ORDERED: ENOXAPARIN 40 MG/0.4 ML SYRINGE SUBQ SCH (09:00)
[2021-11-05] MEDS ORDERED: cefTRIAXone 2 GM in SODIUM CHLORIDE 0.9% MINIBAG 100 ML IV SCH (09:00)
[2021-11-06 05:10] LABS: HBsAG SCREEN Negative (Negative); HCV AB 0.1 s/co ratio (0.0-0.9); HEPATITIS B CORE IGM AB Negative (Negative)
== END 2021-11-05 12:25 | disposition home or self-care (01) ==
LOC: ED 11:31 → UNDOADMOB 15:44 → MS2 15:44
PROVIDERS: ADMIT Family Medicine; ATTEND Family Medicine
DX: A41.89 Other specified sepsis (principal); U07.1 COVID-19; N80.9 Endometriosis, unspecified; R53.1 Weakness; R82.81 Pyuria; R31.9 Hematuria, unspecified; D50.9 Iron deficiency anemia, unspecified; D75.839 Thrombocytosis, unspecified; R74.01 Elevation of levels of liver transaminase levels
CPT/HCPCS: 36415; 71045; 80053; 81001; 82550; 83540; 83605; 83690; 84145; 84443; 84466; 85025; 85610; 86140; 86705; 86709; 86803; 87040; 87086; 87340; 87633; 96361; 96372; 96374; 96375; 99284; 99285; A9270; G0378; J1650; J2916; 81003

== ENCOUNTER 2021-11-09 08:00 | Outpatient (CLI) | payer BC ==
[2021-11-10 01:20] LABS: BACTERIAL VAGINOSIS DNA NEGATIVE (NEGATIVE); CANDIDA GLABRATA DNA NEGATIVE (NEGATIVE); CANDIDA GROUP DNA NEGATIVE (NEGATIVE); CANDIDA KRUSEI DNA NEGATIVE (NEGATIVE); TRICHOMONAS VAGINALIS DNA NEGATIVE (NEGATIVE)
== END 2021-11-09 23:59 | disposition home or self-care (01) ==
LOC: LAB 08:00
PROVIDERS: ATTEND Obstetrics & Gynecology
DX: N93.9 Abnormal uterine and vaginal bleeding, unspecified (principal)
CPT/HCPCS: 81514

== ENCOUNTER 2022-01-18 10:08 | Outpatient (CLI) | payer BC | END 2022-01-18 10:09 | disposition home or self-care (01) | LOC: LAB 10:08 | PROVIDERS: ATTEND Obstetrics & Gynecology Reproductive Endocrinology | DX: Z32.00 Encounter for pregnancy test, result unknown (principal) | CPT/HCPCS: 36415; 84702 ==